=== PATIENT | male | born 1980 | race Caucasian/White ===

== ENCOUNTER 2017-09-18 00:18 | Inpatient (IN) ==
[2017-09-18] MEDS ORDERED: ETOMIDATE 20 MG/10 ML VIAL IV ONE ×2 (00:38→06:21)
[2017-09-18] MEDS ORDERED: ROCURONIUM 100 MG/10 ML VIAL IV ONE ×2 (00:38→06:22)
[2017-09-18 01:01] LABS: Basophils % 0.4 % (0.0-0.8); Eosinophils % 0.5 % (0.00-10.9); Hematocrit 39.7 VOL% (42.0-52.0); Hemoglobin 13.3 GM/DL (14.0-18.0); Immature Granulocytes % 0.4 %; Immature Granulocytes Absolute 0.03 #; Lymphocytes # 1.4 10*3/uL (1.4-4.0); Mean Corpuscular HGB Conc 33.5 GM/DL (32-36); Mean Corpuscular Hemoglobin 32 PG (27-34); Mean Corpuscular Volume 94.1 FL (87-102); Mean Platelet Volume 10.2 FL (9.6-12.0); Monocytes # 0.6 10*3/uL (0.11-0.8); Monocytes % 7.5 % (1.7-12.7); Neutrophils # 6.2 10*3/uL (1.4-7.4); Neutrophils % 74.2 % (38.7-73.9); Platelet Count 169 T/CUMM (130-400); Red Blood Count 4.22 MC/CUMM (3.8-5.5); Red Cell Distribution Width 12.5 % (9.3-17.3); White Blood Count 8.3 T/CUMM (4-12)
[2017-09-18 01:08] LABS: Apearance,Urine Slightly Hazy (Clear); Bacteria,Urine Occasional /HPF (Few); Bilirubin,Urine Negative (Negative); Blood, Urine Negative (Negative); Glucose,Urine (UA) Negative (Negative); Hyaline Casts,Urine 4 /LPF (0-3); Ketones,Urine 20 mg/dL (Negative); Mucus,Urine Few /LPF (Occasional); Nitrite,Urine Negative (Negative); Protein,Urine 100 MG/DL; RBC,Urine 25 /HPF (0-4); Urine Color Amber (Yellow); Urine Specific Gravity 1.032 (1.001-1.035); WBC,Urine 2 /HPF (0-6)
[2017-09-18 01:10] LABS: PT Patient Result 10.5 SECS
[2017-09-18 01:13] LABS: Barbiturates Screen,Urine Negative (Negative); Benzodiazepines Screen,Urine Positive (Negative); Cannabinoid Screen,Urine Positive (Negative); Opiate Screen,Urine Positive (Negative); Phencyclidine Screen,Urine Negative (Negative)
[2017-09-18 01:14] LABS: ABG Base Excess -2.1 MMOL/L (-2.5-2.5); ABG HCO3 22.7 MMOL/L (20-26); ABG Oxygen Saturation 99.8 % (95-100); ABG PCO2 43.9 MM HG (35-48); ABG PH 7.342 (7.35-7.45); ABG TCO2 20.8 MMOL/L (23-27); Pt O2 Delivery Device Ventilator
[2017-09-18 01:33] LABS: Amylase 28 U/L (25-115); Blood Urea Nitrogen 24 MG/DL (7-18); Calcium 8.6 MG/DL (8.5-10.1); Glucose 79 MG/DL (74-106); Lactic Acid 1.1 MMOL/L (0.4-2.0); Potassium 3.7 MMOL/L (3.5-5.1); Sodium 143 MMOL/L (136-145)
[2017-09-18 01:35] LABS: CKMB % 1.1 %; Troponin I Only < 0.015 NG/ML (0.00-0.045)
[2017-09-18] MEDS ORDERED: VECURONIUM 10 MG VIAL IV ONE ×3 (01:57→06:22)
[2017-09-18] MEDS ORDERED: SODIUM CHLORIDE 0.9% 2,000 ML IV ONE (02:10)
[2017-09-18] MEDS ORDERED: fentaNYL 100 MCG/2 ML VIAL IV STA (02:11)
[2017-09-18] MEDS ORDERED: PROPOFOL 1,000 MG/100 ML BOTTLE IV ONE (02:40)
[2017-09-18] MEDS ORDERED: fentaNYL 100 MCG/2 ML VIAL ONE (02:41)
[2017-09-18] MEDS: PROPOFOL 1,000 MG/100 ML BOTTLE IV SCH ×6 (02:50→23:11)
[2017-09-18] MEDS: fentaNYL INJ 1,250 MCG in SODIUM CHLORIDE 0.9% 225 ML IV SCH ×3 (03:00→18:42)
[2017-09-18] MEDS: SODIUM CHLORIDE 0.9% 1,000 ML IV SCH ×3 (04:00→19:33)
[2017-09-18] MEDS ORDERED: VECURONIUM 10 MG VIAL IV STA (04:04)
[2017-09-18] MEDS ORDERED: ONDANSETRON 4 MG/2 ML VIAL IV PRN (04:13)
[2017-09-18] MEDS ORDERED: ALBUTEROL/IPRATROPIUM 3 ML NEB RESP TX PRN (04:13)
[2017-09-18] MEDS: ALBUTEROL/IPRATROPIUM 3 ML NEB RESP TX SCH ×3 (08:24→20:54)
[2017-09-18] MEDS: PANTOPRAZOLE 40 MG VIAL IV SCH (09:04)
[2017-09-18] MEDS: DOCUSATE SODIUM 100 MG CAPSULE PO SCH ×2 (09:05→20:53)
[2017-09-18] MEDS: ENOXAPARIN 40 MG/0.4 ML SYRINGE SUBCUT SCH (09:05)
[2017-09-18] MEDS: LORazepam 2 MG/1 ML VIAL IV PRN ×2 (11:55→23:46)
[2017-09-18 14:52] LABS: CKMB % 1.2 %
[2017-09-19] MEDS: fentaNYL INJ 1,250 MCG in SODIUM CHLORIDE 0.9% 225 ML IV SCH ×4 (00:33→23:27)
[2017-09-19] MEDS: ALBUTEROL/IPRATROPIUM 3 ML NEB RESP TX SCH ×4 (00:53→20:07)
[2017-09-19] MEDS: MIDAZOLAM 100 MG in SODIUM CHLORIDE 0.9% 80 ML IV SCH (01:46)
[2017-09-19] MEDS: PROPOFOL 1,000 MG/100 ML BOTTLE IV SCH ×4 (02:57→18:20)
[2017-09-19] MEDS: SODIUM CHLORIDE 0.9% 1,000 ML IV SCH ×3 (03:26→21:03)
[2017-09-19 04:14] LABS: ABG Base Excess -6.7 MMOL/L (-2.5-2.5); ABG HCO3 18.9 MMOL/L (20-26); ABG Oxygen Saturation 97.7 % (95-100); ABG PH 7.301 (7.35-7.45); ABG TCO2 17.4 MMOL/L (23-27); Allen Test Positive; Pt O2 Delivery Device Ventilator
[2017-09-19] MEDS: PIPERACILLIN/TAZOBACTAM 3,375 MG in SODIUM CHLORIDE 0.9% 100 ML IV SCH ×4 (05:23→21:02)
[2017-09-19] MEDS ORDERED: ACETAMINOPHEN 500 MG TABLET PO SCH (06:00)
[2017-09-19 06:23] LABS: Basophils % 0.3 % (0.0-0.8); Eosinophils # 0.1 10*3/uL (0.0-0.87); Eosinophils % 0.8 % (0.00-10.9); Hematocrit 35.6 VOL% (42.0-52.0); Hemoglobin 11.4 GM/DL (14.0-18.0); Immature Granulocytes % 0.3 %; Immature Granulocytes Absolute 0.02 #; Lymphocytes # 0.8 10*3/uL (1.4-4.0); Mean Corpuscular Hemoglobin 31 PG (27-34); Mean Corpuscular Volume 98.1 FL (87-102); Mean Platelet Volume 10.6 FL (9.6-12.0); Monocytes # 0.3 10*3/uL (0.11-0.8); Monocytes % 5.2 % (1.7-12.7); Neutrophils # 5.3 10*3/uL (1.4-7.4); Neutrophils % 81.4 % (38.7-73.9); Platelet Count 132 T/CUMM (130-400); Red Blood Count 3.63 MC/CUMM (3.8-5.5); Red Cell Distribution Width 12.9 % (9.3-17.3); White Blood Count 6.5 T/CUMM (4-12)
[2017-09-19] MEDS ORDERED: ACETAMINOPHEN 500 MG TABLET PO PRN (06:28)
[2017-09-19 06:49] LABS: Albumin 2.9 G/DL (3.4-5.0); Bilirubin,Total 0.9 MG/DL (0.2-1.0); Calcium 7.7 MG/DL (8.5-10.1); Osmolality,Calculated 284.8 MOS/KG (273-304); Potassium 3.8 MMOL/L (3.5-5.1); Total Protein 5.6 G/DL (6.4-8.3)
[2017-09-19 06:53] LABS: Macrocytosis 2+; Platelet Estimate Normal
[2017-09-19] MEDS: PANTOPRAZOLE 40 MG VIAL IV SCH (08:46)
[2017-09-19] MEDS: ENOXAPARIN 40 MG/0.4 ML SYRINGE SUBCUT SCH (08:47)
[2017-09-19] MEDS: DOCUSATE SODIUM 100 MG CAPSULE PO SCH ×2 (08:47→21:02)
[2017-09-19] MEDS ORDERED: FUROSEMIDE 40 MG/4 ML VIAL IV ONE (15:35)
[2017-09-20] MEDS: fentaNYL INJ 1,250 MCG in SODIUM CHLORIDE 0.9% 225 ML IV SCH ×2 (00:16→05:21)
[2017-09-20] MEDS: ALBUTEROL/IPRATROPIUM 3 ML NEB RESP TX SCH ×4 (01:08→19:38)
[2017-09-20] MEDS: PROPOFOL 1,000 MG/100 ML BOTTLE IV SCH ×2 (02:05→06:49)
[2017-09-20] MEDS: MIDAZOLAM 100 MG in SODIUM CHLORIDE 0.9% 80 ML IV SCH (02:31)
[2017-09-20 04:51] LABS: ABG Base Excess -3.3 MMOL/L (-2.5-2.5); ABG HCO3 21.7 MMOL/L (20-26); ABG Oxygen Saturation 99.2 % (95-100); ABG PCO2 39.8 MM HG (35-48); ABG TCO2 19.6 MMOL/L (23-27); Allen Test Positive; Pt O2 Delivery Device Ventilator
[2017-09-20 04:52] LABS: Basophils % 0.3 % (0.0-0.8); Eosinophils # 0.1 10*3/uL (0.0-0.87); Hematocrit 35.9 VOL% (42.0-52.0); Hemoglobin 11.9 GM/DL (14.0-18.0); Immature Granulocytes % 1.3 %; Immature Granulocytes Absolute 0.09 #; Lymphocytes # 0.8 10*3/uL (1.4-4.0); Lymphocytes % 11.6 % (21.2-54.2); Mean Corpuscular HGB Conc 33.1 GM/DL (32-36); Mean Corpuscular Hemoglobin 32 PG (27-34); Mean Corpuscular Volume 95.5 FL (87-102); Mean Platelet Volume 11.8 FL (9.6-12.0); Monocytes # 0.4 10*3/uL (0.11-0.8); Monocytes % 5.7 % (1.7-12.7); Neutrophils # 5.7 10*3/uL (1.4-7.4); Neutrophils % 80.1 % (38.7-73.9); Platelet Count 80 T/CUMM (130-400); Red Blood Count 3.76 MC/CUMM (3.8-5.5); Red Cell Distribution Width 12.6 % (9.3-17.3); White Blood Count 7.2 T/CUMM (4-12)
[2017-09-20] MEDS: PIPERACILLIN/TAZOBACTAM 3,375 MG in SODIUM CHLORIDE 0.9% 100 ML IV SCH ×3 (04:56→22:19)
[2017-09-20 05:23] LABS: Calcium 7.9 MG/DL (8.5-10.1); Osmolality,Calculated 276.4 MOS/KG (273-304); Potassium 3.4 MMOL/L (3.5-5.1)
[2017-09-20 08:02] LABS: Band Neutrophils 1 % (0-10); Hypochromasia 1+; Lymphocytes 15 % (20-55); Segmented Neutrophils 83 % (50-85); Total Cells Counted 100
[2017-09-20 08:03] LABS: Microcytosis 1+
[2017-09-20] MEDS: PANTOPRAZOLE 40 MG VIAL IV SCH (08:39)
[2017-09-20] MEDS: DOCUSATE SODIUM 100 MG CAPSULE PO SCH ×2 (08:39→21:59)
[2017-09-20] MEDS: ENOXAPARIN 40 MG/0.4 ML SYRINGE SUBCUT SCH (08:39)
[2017-09-20] MEDS: SODIUM CHLORIDE 0.9% 1,000 ML IV SCH (16:53)
[2017-09-20] MEDS: OSELTAMIVIR 75 MG CAPSULE PO SCH (21:59)
[2017-09-21] MEDS: ALBUTEROL/IPRATROPIUM 3 ML NEB RESP TX SCH ×2 (01:42→07:38)
[2017-09-21] MEDS: PIPERACILLIN/TAZOBACTAM 3,375 MG in SODIUM CHLORIDE 0.9% 100 ML IV SCH (06:15)
[2017-09-21] MEDS: MIDAZOLAM 100 MG in SODIUM CHLORIDE 0.9% 80 ML IV SCH (06:33)
[2017-09-21] MEDS: fentaNYL INJ 1,250 MCG in SODIUM CHLORIDE 0.9% 225 ML IV SCH (06:33)
[2017-09-21] MEDS: PROPOFOL 1,000 MG/100 ML BOTTLE IV SCH (06:33)
[2017-09-21] MEDS: ENOXAPARIN 40 MG/0.4 ML SYRINGE SUBCUT SCH (09:15)
[2017-09-21] MEDS: OSELTAMIVIR 75 MG CAPSULE PO SCH (09:15)
[2017-09-21] MEDS: DOCUSATE SODIUM 100 MG CAPSULE PO SCH (09:15)
[2017-09-21] MEDS: PANTOPRAZOLE 40 MG VIAL IV SCH (09:15)
[2017-09-21 11:13] VITALS: BP 127/71
== END 2017-09-21 13:30 | disposition home or self-care (01) | DRG 917 ==
LOC: N.ED 00:18 → EDBD 02:22 → N.EDINP 02:22 → N.CC 03:15